=== PATIENT | male | born 1980 | race Caucasian/White ===

== ENCOUNTER 2018-01-09 19:49 | Inpatient (IN) ==
[2018-01-09 20:17] LABS: Bilirubin,Urine Moderate (Negative); Blood,Urine Negative (Negative); Clarity,Urine Cloudy (Clear); Color,Urine Dark Yellow (Yellow); Glucose,Urine (UA) Normal (Normal); Ketones,Urine 15 mg/dL (Negative); Leukocyte Esterase,Urine Negative (Negative); Nitrite,Urine Negative (Negative); Protein,Urine 30 mg/dL (Neg-Trace); Specific Gravity,Urine 1.026 (1.010-1.025); Urobilinogen,Urine Normal (Normal)
[2018-01-09 20:19] LABS: Bacteria,Urine None Seen per hpf (None-Few); Hyaline Casts,Urine Moderate per lpf (None-Few); Squamous Epithelial Cell,Urine Many per lpf (None-Few)
[2018-01-09] MEDS ORDERED: *HR* FentaNYL (PF) 100 MCG/2 ML VIAL IVP ONE ×3 (20:32→22:02)
[2018-01-09] MEDS ORDERED: Ondansetron 4 MG/2 ML VIAL IVP ONE (20:32)
[2018-01-09 20:47] LABS: Basophils # 0.1 K/mcL (0.0-0.2); Basophils % 0.3 %; Hematocrit 54.7 % (37.5-50.1); Immature Granulocytes % 0.8 % (0-4); Lymphocytes # 1.9 K/mcL (0.6-4.6); Lymphocytes % 9.5 %; Mean Corpuscular HGB Conc 32.9 g/dL (31.6-35.5); Mean Corpuscular Hemoglobin 28.5 pg (28.0-33.3); Mean Corpuscular Volume 86.7 fL (83.0-100.0); Monocytes % 9.8 %; Neutrophils # 16.1 K/mcL (1.6-8.9); Platelet Count 307 K/mcL (140-400); Red Blood Count 6.31 M/mcL (4.19-5.50); Red Cell Distribution Width 16.4 % (11.5-14.5); Segmented Neutrophils % 79.6 %
[2018-01-09] MEDS ORDERED: 0.9 % Sodium Chloride 1,000 ML IVC ONE (20:48)
[2018-01-09 21:03] LABS: Alanine Aminotransferase 23 Units/L (7-52); Albumin 4.7 g/dL (3.5-5.7); Albumin/Globulin Ratio 1.4 (1.1-2.2); Alkaline Phosphatase 97 Units/L (34-104); Amylase 24 Units/L (29-103); Aspartate Amino Transferase 16 Units/L (13-39); BUN/Creatinine Ratio 13 (6-26); Bilirubin,Direct 0.1 mg/dL (0.0-0.2); Bilirubin,Indirect 0.4 mg/dL (0.0-1.2); Bilirubin,Total 0.5 mg/dL (0.3-1.0); Blood Urea Nitrogen 13 mg/dL (6-20); Carbon Dioxide 25 mEq/L (23-29); Chloride 107 mEq/L (98-107); Globulin 3.3 g/dL (2.4-3.5); Glucose 163 mg/dL (70-105); Lipase 26 Units/L (11-82); Osmolality,Calculated 296 (280-300); Potassium 3.6 mEq/L (3.5-5.1); Sodium 141 mEq/L (136-145); eGFR For African Americans > 60 (> 60); eGFR For Non-African Americans > 60 (> 60)
--- NOTE | 2018-01-09 21:20 | Emergency Department Note ---
Disposition Clinical Impression: Crohns disease Qualifiers: Gastrointestinal tract location: unspecified location Digestive disease complication type: unspecified complication Qualified Code(s): K50.919 - Crohn' s disease, unspecified, with unspecified complications Disposition: Admitted As Inpatient Condition: Good Referrals: NONE,PCP [Primary Care Provider] - Forms: ED Satisfaction Letter, Work/School Release Time of Disposition: 22:00 Abdominal Pain HPI - General Chief Complaint: ED Abdominal Pain Stated Complaint: abd pain Time Seen by Provider: 01/09/18 20:19 Source: patient, EMS Mode of arrival: EMS Limitations: no limitations Nursing Notes Reviewed: Yes Vital Signs Reviewed: Yes - History of Present Illness HPI Narrative: 37-year-old with a history of Crohn's comes in complaining of increasing abdominal pain he says he thinks is a flare of his Crohn's disease. Pt Subjective Complaint: abdominal pain Onset (ago): hour(s) Consistency: constant Location: diffuse Pain Scale: 8 Quality: cramping, aching Radiation: none Migration to: no migration Improves with: nothing Worsens with: nothing Context: history of similar episodes, other (History of Crohn's) Associated symptoms: Reports: nausea, vomiting Treatments prior to arrival: none - Related Data Allergies Allergy/AdvReac Type Severity Reaction Status Date / Time Sulfa (Sulfonamide Allergy Rash Verified 01/09/18 19:51 Antibiotics) All systems ED: reviewed and negative except as stated. Constitutional: Denies: fever, chills, weakness, weight change Eyes: Denies: eye pain, eye discharge, vision change ENT ED: Denies: ear pain, throat pain, dental pain, hearing loss, epistaxis, congestion, dysphagia Cardiovascular: Denies: chest pain, palpitations, dyspnea on exertion, edema, syncope Respiratory: Denies: cough, dyspnea, wheezes, hemoptysis, stridor Gastrointestinal: Reports: abdominal pain, nausea, vomiting. Denies: diarrhea, constipation, hematemesis, melena, hematochezia Genitourinary: Denies: urgency, dysuria, frequency, hematuria Musculoskeletal: Denies: back pain, neck pain, arthralgia, myalgia Integumentary: Denies: rash, abrasion, lesions Neurological: Denies: headache, weakness, numbness, paresthesias, confusion, abnormal gait, vertigo Psychiatric: Denies: anxiety, depression, suicidal thoughts, homicidal thoughts , auditory hallucinations, visual hallucinations Endocrine: Denies: fatigue Hematological/Lymphatic: Denies: easy bleeding, easy bruising Allergic/Immunologic: Denies: facial swelling, urticaria Abdominal Pain PMH - Past Medical History Medical history: Reports: other Male Surgical History: Reports: Adenoidectomy, Tonsillectomy Psychiatric history: Reports: no psych history - Social History Smoking status: Current every day smoker Alcohol use: Reports: none Drug use: Reports: none Physical Exam - General Limitations: no limitations General appearance: alert - Head Head exam: atraumatic, normocephalic, normal inspection - Eye Eye exam: Present: normal appearance, PERRL, EOMI - ENT ENT exam: normal exam, normal oropharynx, mucous membranes moist - Neck Neck exam: Present: normal inspection, full ROM, trachea midline - Chest Chest inspection: Present: normal inspection, symmetric chest wall rise - Respiratory Respiratory exam: Present: normal lung sounds bilaterally - Cardiovascular Cardiovascular exam: Present: regular rate, normal rhythm, normal heart sounds - Abdominal Exam Abdominal exam: Present: tenderness. Absent: guarding, rebound Abdominal tenderness: Present: diffuse - Extremities Exam Extremities exam: Present: normal inspection, full ROM. Absent: tenderness, pedal edema - Expanded Lower Extremity Exam Neurovascular/Tendon exam: Present: normal capillary refill - Back Exam Back exam: Present: normal inspection, full ROM. Absent: tenderness - Neurological Exam Neurological exam: Present: alert, oriented X3 - Psychiatric Psychiatric exam: Present: normal affect, normal mood - Skin Skin exam: Present: warm, dry, intact, normal color Course - Reevaluation(s) Reevaluation #1: 37-year-old with a history Crohn's disease who comes in complaining of worsening abdominal pain. Workup shows a white count of 20,000, CT scan shows some narrowing at the terminal ileum may represent an early partial bowel obstruction. Time: 21:59 - Consultations Consultation #1: Discussed with , admit. Time: 21:59 Consultation #2: Discussed with Dr. Hernandez, surgery will see the patient in consult. Time: 22:06 Vital Signs Temperature 97.9 F 01/09/18 19:51 Pulse Rate 118 01/09/18 19:51 Respiratory Rate 16 01/09/18 19:51 Blood Pressure 135/96 01/09/18 19:51 O2 Sat by Pulse Oximetry 98 01/09/18 19:51 Temperature 97.9 F 01/09/18 19:51 Pulse Rate 110 01/09/18 21:52 Respiratory Rate 16 01/09/18 21:52 Blood Pressure 127/86 01/09/18 21:52 O2 Sat by Pulse Oximetry 100 01/09/18 21:52 Oxygen Delivery Oxygen Delivery Room Air Abdominal Pain - Lab Data Result diagrams: 01/09/18 20:39 01/09/18 20:39 Lab Results 01/09/18 01/09/18 01/09/18 Range/Units 20:13 20:39 20:39 WBC 20.3 H (4.3-11.1) K/mcL RBC 6.31 H (4.19-5.50) M/mcL Hgb 18.0 H (12.9-16.9) g/dL Hct 54.7 H (37.5-50.1) % MCV 86.7 (83.0-100.0) fL MCH 28.5 (28.0-33.3) pg MCHC 32.9 (31.6-35.5) g/dL RDW 16.4 H (11.5-14.5) % Plt Count 307 (140-400) K/mcL MPV 10.0 (9.4-12.4) fL Immature Gran % 0.8 (0-4) % Seg Neutrophils % 79.6 % Lymphocytes % 9.5 % Monocytes % 9.8 % Eosinophils % 0.0 % Basophils % 0.3 % Neutrophils # 16.1 H (1.6-8.9) K/mcL Lymphocytes # 1.9 (0.6-4.6) K/mcL Monocytes # 2.0 H (0.0-1.3) K/mcL Eosinophils # 0.0 (0.0-0.6) K/mcL Basophils # 0.1 (0.0-0.2) K/mcL ESR (0-10) mm/hr Sodium 141 (136-145) mEq/L Potassium 3.6 (3.5-5.1) mEq/L Chloride 107 (98-107) mEq/L Carbon Dioxide 25 (23-29) mEq/L BUN 13 (6-20) mg/dL Creatinine 1.00 (0.70-1.30) mg/dL Est GFR ( Amer) > 60 (> 60) Est GFR (Non-Af Amer) > 60 (> 60) BUN/Creatinine Ratio 13 (6-26) Glucose 163 H (70-105) mg/dL Calculated Osmolality 296 (280-300) Calcium 10.0 (8.6-10.3) mg/dL Total Bilirubin 0.5 (0.3-1.0) mg/dL Direct Bilirubin 0.1 (0.0-0.2) mg/dL Indirect Bilirubin 0.4 (0.0-1.2) mg/dL AST 16 (13-39) Units/L ALT 23 (7-52) Units/L Alkaline Phosphatase 97 (34-104) Units/L Serum Total Protein 8.0 (6.4-8.9) g/dL Albumin 4.7 (3.5-5.7) g/dL Globulin 3.3 (2.4-3.5) g/dL Albumin/Globulin Ratio 1.4 (1.1-2.2) Amylase 24 L (29-103) Units/L Lipase 26 (11-82) Units/L Urine Color Dark Yellow (Yellow) Urine Clarity Cloudy A (Clear) Urine pH 6.0 (5.0-8.0) pH Units Ur Specific [place] 1.026 H (1.010-1.025) Urine Protein 30 H (Neg-Trace) mg/dL Urine Glucose (UA) Normal (Normal) mg/dL Urine Ketones 15 H (Negative) mg/dL Urine Blood Negative (Negative) Urine Nitrite Negative (Negative) Urine Bilirubin Moderate H (Negative) Urine Urobilinogen Normal (Normal) mg/dL Ur Leukocyte Esterase Negative (Negative) Urine Microscopic RBC 3-5 H (0-3) per hpf Urine Microscopic WBC 5-15 H (0-3) per hpf Ur Squamous Epith Cells Many H (None-Few) per lpf Urine Bacteria None Seen (None-Few) per hpf Hyaline Casts Moderate H (None-Few) per lpf Ur Culture Indicated? NO (NO) 01/09/18 Range/Units 20:39 WBC (4.3-11.1) K/mcL RBC (4.19-5.50) M/mcL Hgb (12.9-16.9) g/dL Hct (37.5-50.1) % MCV (83.0-100.0) fL MCH (28.0-33.3) pg MCHC (31.6-35.5) g/dL RDW (11.5-14.5) % Plt Count (140-400) K/mcL MPV (9.4-12.4) fL Immature Gran % (0-4) % Seg Neutrophils % % Lymphocytes % % Monocytes % % Eosinophils % % Basophils % % Neutrophils # (1.6-8.9) K/mcL Lymphocytes # (0.6-4.6) K/mcL Monocytes # (0.0-1.3) K/mcL Eosinophils # (0.0-0.6) K/mcL Basophils # (0.0-0.2) K/mcL ESR 26 H (0-10) mm/hr Sodium (136-145) mEq/L Potassium (3.5-5.1) mEq/L Chloride (98-107) mEq/L Carbon Dioxide (23-29) mEq/L BUN (6-20) mg/dL Creatinine (0.70-1.30) mg/dL Est GFR ( Amer) (> 60) Est GFR (Non-Af Amer) (> 60) BUN/Creatinine Ratio (6-26) Glucose (70-105) mg/dL Calculated Osmolality (280-300) Calcium (8.6-10.3) mg/dL Total Bilirubin (0.3-1.0) mg/dL Direct Bilirubin (0.0-0.2) mg/dL Indirect Bilirubin (0.0-1.2) mg/dL AST (13-39) Units/L ALT (7-52) Units/L Alkaline Phosphatase (34-104) Units/L Serum Total Protein (6.4-8.9) g/dL Albumin (3.5-5.7) g/dL Globulin (2.4-3.5) g/dL Albumin/Globulin Ratio (1.1-2.2) Amylase (29-103) Units/L Lipase (11-82) Units/L Urine Color (Yellow) Urine Clarity (Clear) Urine pH (5.0-8.0) pH Units Ur Specific [place] (1.010-1.025) Urine Protein (Neg-Trace) mg/dL Urine Glucose (UA) (Normal) mg/dL Urine Ketones (Negative) mg/dL Urine Blood (Negative) Urine Nitrite (Negative) Urine Bilirubin (Negative) Urine Urobilinogen (Normal) mg/dL Ur Leukocyte Esterase (Negative) Urine Microscopic RBC (0-3) per hpf Urine Microscopic WBC (0-3) per hpf Ur Squamous Epith Cells (None-Few) per lpf Urine Bacteria (None-Few) per hpf Hyaline Casts (None-Few) per lpf Ur Culture Indicated? (NO)
[2018-01-09] MEDS ORDERED: Piperacillin/Tazobactam 3.375 GM in 0.9 % Sodium Chloride Mini Bag 100 ML IVPB ONE (22:00)
[2018-01-09] MEDS ORDERED: GI Cocktail 40 ML EACH PO ONE (22:20)
[2018-01-09] MEDS ORDERED: Naloxone 0.4 MG/ML INJ IVP PRN (23:22)
--- NOTE | 2018-01-09 23:34 | Internal Med History&Physical ---
Date of Encounter: 01/10/18 Time of Encounter: 23:34 Assessment and Plan (1) Crohns disease Current visit: Yes Status: Acute 37/male Patient is known to have a Crohn's disease. Patient used to be in [place]. Move to [place]. Ongoing abdominal pain for past 48 hours. On examination: Patient has a intra-abdominal/periumbilical tenderness. Bowel sounds are present Assessment: Patient has a possible small bowel obstruction (CT finding) Advance Crohn's disease. Noncompliance. Plan: Admit as inpatient. We will give Zosyn. Antiembolic stockings. Intravenous antibiotics: Zosyn 3.375 g every 8 hours. Nothing by mouth. Bowel rest. Surgical consult. Qualifiers: Gastrointestinal tract location: unspecified location Digestive disease complication type: unspecified complication Qualified Code(s): K50.919 - Crohn 's disease, unspecified, with unspecified complications (2) Partial small bowel obstruction Current visit: Yes Status: Acute Patient is a possibility of a partial small bowel obstruction. Surgery on the board. We will follow the recommendations from surgery. (3) DVT prophylaxis Current visit: Yes Status: Acute SCD Medical decision making: This patient has a moderate to severe risk of worsening in spite of being on appropriate medication due to the underlying complex medical condition. Internal Medicine - H&P: HPI Chief complaint: abdominal pain. Admitted From: Emergency Dept Plans for Post Hospital Care: Home History of present illness: Mr. Castro is a 37 year old male who has recently moved to [facility] from [place]. Patient is known to have a Crohn's disease seems the ER 1999. Patient was followed by Dr. Mooney who is a experimental mechanic spacecraft in [place]. Patient was on mesalamine. Patient was keen to switch to Biologics. Patient is very noncompliant with the treatment. Patient has multiple admissions in the last 18 years and he has defaulted on many of his workup and procedures. Patient arrived in [place] less than 2 weeks back. Patient is complaining of abdominal pain which is surrounding the umbilicus, nonradiating, localized, associated with nausea and vomiting and relieved with pain medication. Patient denies chest pain, diarrhea, dizziness or shortness of breath. In view of this ongoing persistent pain patient decided to come to the emergency room for further evaluation. Patient was evaluated in the emergency room. He underwent CT scan of the abdomen. CT scan of the abdomen shows possibility of a small bowel obstruction. Small bowel obstruction is partial in nature. Noted that patient has a elevated white blood cell count at patient' s hemoglobin on arrival was 18. It seems that patient is hemoconcentrated. Reason for admission: Severe gastroenteritis/dehydration. Patient was a background history of for Crohn's disease. Patient has a colitis and needs intravenous antibiotics along with the bowel rest. Past Med Surg Social Fam HX - Past Medical History Medical history: other Psychiatric history: no psych history - Social History Smoking Status: Current every day smoker Smokeless Tobacco Status: No Alcohol use: none Drug use: none Internal Medicine - H&P: Meds 3 Allergy/AdvReac Type Severity Reaction Status Date / Time Sulfa (Sulfonamide Allergy Rash Verified 01/09/18 19:51 Antibiotics) All Systems PM: A 10-system review of systems was performed and is negative for pertinent findings except as documented above in the HPI. - Constitutional Constitutional: no chills, no fever(s), no night sweats - EENT Eyes: no change in vision, no discharge, no pain, no photophobia Ears: no ear discharge, no ear pain, no tinnitus Nose, mouth and throat: no dysphagia, no nasal discharge, no neck pain, no sore throat - Cardiovascular Cardiovascular ROS IM: no chest pain, no diaphoresis, no dyspnea, no lightheadedness, no palpitations, no syncope - Respiratory Respiratory: no cough, no dyspnea, no wheezing, no excessive phlegm production - Gastrointestinal Gastrointestinal: abdominal pain, bloating, change in stool character, heartburn , no diarrhea, no hematemesis, no hematochezia, no melena, no nausea, no vomiting - Musculoskeletal Musculoskeletal ROS IM: no numbness, no tingling - Integumentary Integumentary IM: no rash, no unusual bruising - Neurological Neurological ROS: no confusion, no convulsions, no focal weakness, no numbness, no tingling, no tremor(s) - Hematologic/Lymphatic Hematologic/Lymphatic: no easy bruising - Constitutional Vitals: Temp Pulse Resp BP Pulse Ox 97.9 F 110 16 127/86 100 01/09/18 19:51 01/09/18 21:52 01/09/18 21:52 01/09/18 21:52 01/09/18 21:52 General appearance: Present: A&O X 3, pleasant, no acute distress, answers questions appropriately - Head Head exam: Present: atraumatic, normocephalic - Eye Eye exam: Present: PERRL, conjuntiva pink, sclera anicteric Pupils: Present: PERRL - Neck Neck exam general surgery: Present: supple, trachea midline. Absent: lymphadenopathy - Respiratory Respiratory exam: Present: CTAB. Absent: accessory muscle use, rales, rhonchi, wheezes - Cardiovascular Cardiovascular exam: Present: RRR, +S1, +S2. Absent: diastolic murmur, gallop, rubs, systolic murmur - GI/Abdominal GI/Abdominal exam: Present: normal bowel sounds, soft, no peritoneal signs. Absent: distended, tenderness Additional comments: Patient has a abdominal tenderness around the umbilicus. - Extremities Exam Extremities exam: Present: warm, radial pulses palpable and symmetrical. Absent : calf tenderness, cyanotic, pedal edema - Neurological Exam Neurological exam: Present: CN II-XII intact, oriented X3, no focal deficits. Absent: pronater drift, facial droop, speech deficit - Skin Skin exam: Present: dry, intact Internal Med - H&P Results - Labs CBC & Chem 7: 01/10/18 01:17 01/10/18 01:17
[2018-01-10] MEDS: OXYCODONE Oral CONC 10 MG/0.5 ML ORAL.SYG SL PRN ×6 (00:07→22:20)
[2018-01-10] MEDS: 0.9 % Sodium Chloride 1,000 ML IVC SCH ×2 (00:09→10:23)
[2018-01-10 02:02] LABS: Basophils # 0.1 K/mcL (0.0-0.2); Basophils % 0.3 %; Hematocrit 51.1 % (37.5-50.1); Immature Granulocytes % 0.9 % (0-4); Lymphocytes # 1.8 K/mcL (0.6-4.6); Lymphocytes % 11.3 %; Mean Corpuscular HGB Conc 33.3 g/dL (31.6-35.5); Mean Corpuscular Volume 87.1 fL (83.0-100.0); Mean Platelet Volume 10.3 fL (9.4-12.4); Monocytes # 1.7 K/mcL (0.0-1.3); Monocytes % 10.6 %; Neutrophils # 12.2 K/mcL (1.6-8.9); Platelet Count 304 K/mcL (140-400); Red Blood Count 5.87 M/mcL (4.19-5.50); Red Cell Distribution Width 15.3 % (11.5-14.5); Segmented Neutrophils % 76.9 %
[2018-01-10 02:07] LABS: INR 1.1
[2018-01-10 02:10] LABS: Activated Partial Thrombo Time 31.9 Seconds (26.0-36.0)
[2018-01-10 02:39] LABS: Alanine Aminotransferase 20 Units/L (7-52); Albumin 4.3 g/dL (3.5-5.7); Albumin/Globulin Ratio 1.5 (1.1-2.2); Alkaline Phosphatase 89 Units/L (34-104); Aspartate Amino Transferase 15 Units/L (13-39); BUN/Creatinine Ratio 14 (6-26); Bilirubin,Total 0.5 mg/dL (0.3-1.0); Blood Urea Nitrogen 12 mg/dL (6-20); Calcium 9.1 mg/dL (8.6-10.3); Carbon Dioxide 23 mEq/L (23-29); Chloride 109 mEq/L (98-107); Chol/HDL Ratio 7.3 (0-4.9); Cholesterol 196 mg/dL (< 200); Globulin 2.9 g/dL (2.4-3.5); Glucose 154 mg/dL (70-105); HDL Cholesterol 27 mg/dL (40-59); LDL Cholesterol,Calculated 140 mg/dL (0-99); Magnesium 1.7 mg/dL (1.6-2.6); Osmolality,Calculated 295 (280-300); Phosphorous 2.7 mg/dL (2.7-4.5); Potassium 3.3 mEq/L (3.5-5.1); Sodium 141 mEq/L (136-145); Total Protein 7.2 g/dL (6.4-8.9); Triglycerides 147 mg/dL (< 150); eGFR For African Americans > 60 (> 60); eGFR For Non-African Americans > 60 (> 60)
[2018-01-10] MEDS: Ondansetron 4 MG/2 ML VIAL IVP PRN ×2 (05:07→20:47)
--- NOTE | 2018-01-10 07:50 | General Surgery Consult Note ---
Date of Encounter: 01/10/18 Time of Encounter: 07:50 Assessment and Plan (1) Crohns disease Current Visit: Yes Status: Acute 37M with crohn's flare with concern for developing obstruction at TI; patient is currently not obstructed and non septic GI consult: patient will need pharmacological control of crohn's; if patient does begin to appear obstructed, plan for a SBFT to verify; no surgery at present patient will need colonoscopy in light of his duration with crohn's disease as he has a high risk of cancer will continue to follow Qualifiers: Gastrointestinal tract location: small intestine Digestive disease complication type: unspecified complication Qualified Code(s): K50.019 - Crohn 's disease of small intestine with unspecified complications History of Present Illness Consult date: 01/10/18 Reason for consult: abdominal pain Requesting physician: Alex Erwin History of present illness: 37M with a 9 year history of Crohn's disease, originally controlled with medication, who has recently moved from [facility] and has been off medication for about 1 year presents with a recurrence of Crohn's flare. He states that he has been unable to eat for the past 2-3 days due to pain, distension, bloating, and feeling of heartburn. In addition he also has diarrhea, but he states he is passing gas with these episodes. No reports of fevers, chills, chest pain, nor shortness of breath. A CT scan was obtained, which was personally reviewed and interpreted by me in combination with radiology reads, which was concerning for potential stricture at his terminal ileum, but described as a 'partial obstruction.' General surgery was consulted for management recommendations. Past Med Surg Social Fam HX - Past Medical History Medical history: other Psychiatric history: no psych history - Past Surgical History Surgical History: no surgical history - Social History Smoking Status: Current every day smoker Smokeless Tobacco Status: No Alcohol use: none Drug use: none Medications and Allergies 3 Allergy/AdvReac Type Severity Reaction Status Date / Time Sulfa (Sulfonamide Allergy Rash Verified 01/09/18 19:51 Antibiotics) Review of Systems All systems PM: A 10-system review of systems was performed and is negative for pertinent findings except as documented above in the HPI. General Surgery Exam Initial Vital Signs Temp Pulse Resp BP Pulse Ox 97.9 F 118 16 135/96 98 01/09/18 19:51 01/09/18 19:51 01/09/18 19:51 01/09/18 19:51 01/09/18 19:51 - General physical appearance well developed, well nourished, no distress - Eyes normal ocular movement - ENT normocephalic - Neck trachea midline, no lymphadectomy - Respiratory normal expansion, normal respiratory effort - Cardiovascular Cardiovascular exam: Present: RRR - Abdomen Abdomen general surgery: Present: soft, non tender - Integumentary Integumentary general surgery: Present: warm and dry - Neurologic Present: CN 2-12 grossly intact - Psychiatric Psychiatric general surgery: Present: A&Ox3 Exam Initial Vital Signs Temp Pulse Resp BP Pulse Ox 97.9 F 118 16 135/96 98 01/09/18 19:51 01/09/18 19:51 01/09/18 19:51 01/09/18 19:51 01/09/18 19:51 Results - Labs 01/10/18 01:17 01/10/18 01:17 Abnormal lab results WBC 15.8 K/mcL (4.3-11.1) H 01/10/18 01:17 RBC 5.87 M/mcL (4.19-5.50) H 01/10/18 01:17 Hgb 17.0 g/dL (12.9-16.9) H 01/10/18 01:17 Hct 51.1 % (37.5-50.1) H 01/10/18 01:17 RDW 15.3 % (11.5-14.5) H 01/10/18 01:17 Neutrophils # 12.2 K/mcL (1.6-8.9) H 01/10/18 01:17 Monocytes # 1.7 K/mcL (0.0-1.3) H 01/10/18 01:17 ESR 26 mm/hr (0-10) H 01/09/18 20:39 Potassium 3.3 mEq/L (3.5-5.1) L 01/10/18 01:17 Chloride 109 mEq/L (98-107) H 01/10/18 01:17 Glucose 154 mg/dL (70-105) H 01/10/18 01:17 POC Glucose 156 (58-89) H 01/10/18 05:22 LDL Cholesterol, Calc 140 mg/dL (0-99) H 01/10/18 01:17 HDL Cholesterol 27 mg/dL (40-59) L 01/10/18 01:17 Cholesterol/HDL Ratio 7.3 (0-4.9) H 01/10/18 01:17 Amylase 24 Units/L (29-103) L 01/09/18 20:39 Urine Clarity Cloudy (Clear) A 01/09/18 20:13 Ur Specific [place] 1.026 (1.010-1.025) H 01/09/18 20:13 Urine Protein 30 mg/dL (Neg-Trace) H 01/09/18 20:13 Urine Ketones 15 mg/dL (Negative) H 01/09/18 20:13 Urine Bilirubin Moderate (Negative) H 01/09/18 20:13 Urine Microscopic RBC 3-5 per hpf (0-3) H 01/09/18 20:13 Urine Microscopic WBC 5-15 per hpf (0-3) H 01/09/18 20:13 Ur Squamous Epith Cells Many per lpf (None-Few) H 01/09/18 20:13 Hyaline Casts Moderate per lpf (None-Few) H 01/09/18 20:13 Diabetes panel 01/10/18 Range/Units 01:17 Sodium 141 (136-145) mEq/L Potassium 3.3 L (3.5-5.1) mEq/L Chloride 109 H (98-107) mEq/L Carbon Dioxide 23 (23-29) mEq/L BUN 12 (6-20) mg/dL Creatinine 0.83 (0.70-1.30) mg/dL Glucose 154 H (70-105) mg/dL Calcium 9.1 (8.6-10.3) mg/dL AST 15 (13-39) Units/L ALT 20 (7-52) Units/L Alkaline Phosphatase 89 (34-104) Units/L Albumin 4.3 (3.5-5.7) g/dL Triglycerides 147 (< 150) mg/dL HDL Cholesterol 27 L (40-59) mg/dL Calcium panel 01/10/18 Range/Units 01:17 Calcium 9.1 (8.6-10.3) mg/dL Phosphorus 2.7 (2.7-4.5) mg/dL Albumin 4.3 (3.5-5.7) g/dL Pituitary panel 01/10/18 Range/Units 01:17 Sodium 141 (136-145) mEq/L Potassium 3.3 L (3.5-5.1) mEq/L Chloride 109 H (98-107) mEq/L Carbon Dioxide 23 (23-29) mEq/L BUN 12 (6-20) mg/dL Creatinine 0.83 (0.70-1.30) mg/dL Glucose 154 H (70-105) mg/dL Calcium 9.1 (8.6-10.3) mg/dL Adrenal panel 01/10/18 Range/Units 01:17 Sodium 141 (136-145) mEq/L Potassium 3.3 L (3.5-5.1) mEq/L Chloride 109 H (98-107) mEq/L Carbon Dioxide 23 (23-29) mEq/L BUN 12 (6-20) mg/dL Creatinine 0.83 (0.70-1.30) mg/dL Glucose 154 H (70-105) mg/dL Calcium 9.1 (8.6-10.3) mg/dL Total Bilirubin 0.5 (0.3-1.0) mg/dL AST 15 (13-39) Units/L ALT 20 (7-52) Units/L Alkaline Phosphatase 89 (34-104) Units/L Albumin 4.3 (3.5-5.7) g/dL All other labs normal. - Imaging CT scan - abdomen: report reviewed, image reviewed CT scan - pelvis: report reviewed, image reviewed Consult Discharge Plan - Plan Referrals: NONE,PCP [Primary Care Provider] -
--- NOTE | 2018-01-10 11:50 | Event Note ---
Date of Encounter: 01/10/18 Time of Encounter: 11:48 Mr. Castro is a 37 year old male who has recently moved to [facility] from [place]. Patient is known to have a Crohn's disease seems the ER 1999. Patient was followed by Dr. Mooney who is a institutional aide in [place]. Patient was on mesalamine. Patient was keen to switch to Biologics. Patient is very noncompliant with the treatment. Patient has multiple admissions in the last 18 years and he has defaulted on many of his workup and procedures. Patient currently is not on any medications for Crohn's disease. He presented to emergency room for abdominal pain nausea vomiting. CT scan shows possible small bowel obstruction. Surgery was consulted, no surgical intervention was recommended . I will consult the GI for further treatment. We will add a Flagyl IV to zosyn.
[2018-01-10] MEDS ORDERED: MetroNIDAZOLE 500 MG/100 ML 500 MG/100 ML BAG IVPB SCH ×2 (12:00→16:00)
[2018-01-10] MEDS: methylPREDNISolone 125 MG/2 ML VIAL IVP SCH (13:57)
[2018-01-10] MEDS ORDERED: *HR* HYDROmorphone (PF) 1 MG/ML SYRINGE IVP ONE (17:23)
[2018-01-10] MEDS: MetroNIDAZOLE 500 MG/100 ML 500 MG/100 ML BAG IVPB SCH (20:48)
[2018-01-10] MEDS: *HR* Promethazine 25 MG/ML VIAL IVP PRN (22:14)
[2018-01-11] MEDS: OXYCODONE Oral CONC 10 MG/0.5 ML ORAL.SYG SL PRN ×5 (03:24→23:37)
[2018-01-11] MEDS: *HR* Promethazine 25 MG/ML VIAL IVP PRN ×5 (03:24→23:37)
[2018-01-11] MEDS: MetroNIDAZOLE 500 MG/100 ML 500 MG/100 ML BAG IVPB SCH ×3 (04:18→20:34)
[2018-01-11] MEDS: methylPREDNISolone 125 MG/2 ML VIAL IVP SCH (09:37)
--- NOTE | 2018-01-11 11:11 | Gastroenterology Consult Note ---
<Bruce Reyna - Last Filed: 01/11/18 11:09> Date of Encounter: 01/11/18 Time of Encounter: 10:00 - Assessment and plan (1) Crohns disease Status: Acute Assessment and plan: Diagnosed in 2004. Has tried Mesalimine. Last colonoscopy several years ago in [place]. Will attempt obtain colonoscopy report and pathology from [facility] in [place]. Will need colonoscopy. Continue Solu-Medrol 60 mg IV and pain control. Qualifiers: Gastrointestinal tract location: small intestine Digestive disease complication type: unspecified complication Qualified Code(s): K50.019 - Crohn 's disease of small intestine with unspecified complications (2) Partial small bowel obstruction Status: Acute Assessment and plan: Surgery consulted - Time Spent With Patient Total time spent is greater than 50% in coordination of care (as documented) at patient's floor/unit and/or counseling patient: GI History of Present Illness - Data of Consult Patient: new to practice Consult date: 01/11/18 Requesting Physician: Chloé Del Rio MD - Consult Narrative Reason for consult: Crohn's disease History of present illness: Mr. Castro is a 37 year old male with PMH of Crohn's disease who presented to the ED with abdominal pain with associated nausea and vomiting. He was diagnosed with Crohn's disease in 2004. He recently moved to [place] from [place]. Patient was followed by Dr. Mooney who is a retail marketing specialist in [place]. Patient was on mesalamine. Patient has been noncompliant with the treatment. Patient has multiple admissions in the last 18 years and he has defaulted on many of his workup and procedures. He states that he has been unable to eat for the past 2-3 days due to pain, distension, bloating, and feeling of heartburn. In addition he also has diarrhea with BRBPR. CT A/P with fluid throughout the small and large bowel, borderline prominent loops of proximal small bowel with gradual tapering towards the TI with possible low- grade partial obstruction. Procedures: Colonoscopy "years ago" at [facility] in [place] NSAIDs: None Anticoagulation: None Past Med Surg Social Fam HX - Past Medical History Medical history: other Psychiatric history: no psych history - Past Surgical History Surgical History: no surgical history - Social History Smoking Status: Current every day smoker Smokeless Tobacco Status: No Alcohol use: none Drug use: none - Gastrointestinal Gastrointestinal: Present: as per HPI - Constitutional Constitutional: as per HPI - EENT Eyes: as per HPI Ears: Present: as per HPI Nose, mouth and throat: Present: as per HPI - Cardiovascular Cardiovascular ROS: Present: as per HPI - Respiratory Respiratory IM: Present: as per HPI - Genitourinary Genitourinary: Absent: change in color, Urinary frequency - Neurological ROS Neurological GI: Present: as per HPI - Hematologic/Lymphatic Hematologic/Lymphatic pediatric: Present: as per HPI - Musculoskeletal Musculoskeletal ROS GI: Present: as per HPI - Integumentary Integumentary GI: Present: as per HPI - Psychiatric ROS Psychiatric GI: Present: as per HPI - Endocrine Endocrine IM: Present: as per HPI - Constitutional Vitals: Temp Pulse Resp BP Pulse Ox 98.9 F 70 15 108/64 97 01/11/18 03:24 01/11/18 03:24 01/11/18 03:24 01/11/18 03:24 01/11/18 03:24 General appearance: Present: cooperative, A&O X 3, no acute distress, answers questions appropriately - Head Head exam: Present: atraumatic, normocephalic - Eye Eye exam: Present: normal appearance, sclera anicteric - ENT ENT exam: Present: mucous membranes dry - Neck Neck exam general surgery: Present: normal inspection, trachea midline - Respiratory Respiratory exam: Present: CTAB. Absent: rales, rhonchi - Cardiovascular Cardiovascular exam: Present: RRR, +S1, +S2 - GI/Abdominal GI/Abdominal exam: Present: guarding, soft, tenderness (generalized, mostly LLQ) , no peritoneal signs. Absent: distended, firm - Rectal Rectal exam: Present: deferred - Extremities Exam Extremities exam: Present: warm - Neurological Exam Neurological exam: Present: no focal deficits - Psychiatric Psychiatric exam: Present: normal affect, normal mood - Skin Skin exam: Present: dry, intact, normal color, warm Results - Labs CBC & Chem 7: 01/10/18 01:17 01/10/18 01:17 Labs: Last Result ESR 26 mm/hr (0-10) H 01/09/18 20:39 Calcium 9.1 mg/dL (8.6-10.3) 01/10/18 01:17 Triglycerides 147 mg/dL (< 150) 01/10/18 01:17 Entire Visit Hgb 17.0 g/dL (12.9-16.9) H 01/10/18 01:17 Hct 51.1 % (37.5-50.1) H 01/10/18 01:17 PT 12.0 Seconds (9.4-12.1) 01/10/18 01:17 Total Bilirubin 0.5 mg/dL (0.3-1.0) 01/10/18 01:17 AST 15 Units/L (13-39) 01/10/18 01:17 ALT 20 Units/L (7-52) 01/10/18 01:17 Amylase 24 Units/L (29-103) L 01/09/18 20:39 Lipase 26 Units/L (11-82) 01/09/18 20:39 - ABG ABG results: PT/INR, D-dimer PT 12.0 Seconds (9.4-12.1) 01/10/18 01:17 Consult Discharge Plan - Plan Instructions: Crohn Disease (GEN) Additional Instructions: F/up with PCP in 1-2 weeks F/u with GI in 2 weeks Referrals: NONE,PCP [Primary Care Provider] - (Patient in the process of moving and will find his own physician at this time. Thank you) Jonathan Lebron MD [Partnered Physician] - (Office will call with date and time of appt. Thank you) Prescriptions: OxyCODONE/APAP 5/325 [Percocet 5/325 MG] 1 each PO Q6HR PRN 5 Days #10 tablet PRN Reason: Pain predniSONE [PredniSONE] 40 mg PO DAILY 21 Days tablet <Rigo Joyner - Last Filed: 01/30/18 13:55> Date of Encounter: 01/11/18 - Time Spent With Patient Total time spent is greater than 50% in coordination of care (as documented) at patient's floor/unit and/or counseling patient: GI History of Present Illness - Data of Consult Requesting Physician: Chloé Del Rio MD - Consult Narrative History of present illness: Mr. Castro is a 37 year old male - Constitutional Vitals: Temp Pulse Resp BP Pulse Ox 99.6 F 86 16 124/81 96 01/13/18 10:48 01/13/18 10:48 01/13/18 10:48 01/13/18 10:48 01/13/18 10:48 Results - Labs CBC & Chem 7: 01/13/18 09:02 01/13/18 09:02 Labs: Last Result ESR 26 mm/hr (0-10) H 01/09/18 20:39 Calcium 8.9 mg/dL (8.6-10.3) 01/13/18 09:02 Triglycerides 147 mg/dL (< 150) 01/10/18 01:17 Entire Visit Hgb 17.2 g/dL (12.9-16.9) H 01/13/18 09:02 Hct 52.1 % (37.5-50.1) H 01/13/18 09:02 PT 12.0 Seconds (9.4-12.1) 01/10/18 01:17 Total Bilirubin 0.5 mg/dL (0.3-1.0) 01/10/18 01:17 AST 15 Units/L (13-39) 01/10/18 01:17 ALT 20 Units/L (7-52) 01/10/18 01:17 Amylase 24 Units/L (29-103) L 01/09/18 20:39 Lipase 26 Units/L (11-82) 01/09/18 20:39 S.cerevisiae IgG Ab 25.7 Units (0.0-24.9) H 01/13/18 09:02 S.cerevisiae IgA Ab 33.0 Units (0.0-24.9) H 01/13/18 09:02 - ABG ABG results: PT/INR, D-dimer PT 12.0 Seconds (9.4-12.1) 01/10/18 01:17 - Attending Attestation Mrs. Duggan is a pleasant 37-year-old white male who was at a retail marketing specialist office in [place] where he was diagnosed with Crohn's disease. He now comes in with an exacerbation of the same. Unfortunately we have no records of that and have requested records from [place] Patient will need a colonoscopy and will make further recommendations after the procedure by which time hopefully the records from [place] will arrive and help I have personally performed a face to face evaluation on this patient. I have reviewed and agree with the care plan. History and Exam by me shows: in this patient's management
--- NOTE | 2018-01-11 12:34 | General Surgery Progress Note ---
Date of Encounter: 01/11/18 Time of Encounter: 12:32 - Assessment and Plan (1) Crohns disease Current Visit: Yes Status: Acute 37M with crohn's flare with concern for developing obstruction at TI; patient is currently not obstructed and non septic cont with IV pain meds; appreciate GI recs consider sips of liquids (250cc qshift, non carbonate, non sweetened) once pain is controlled no acute surgery at present, patient needs control of crohn's flare will cont to follow Qualifiers: Gastrointestinal tract location: small intestine Digestive disease complication type: unspecified complication Qualified Code(s): K50.019 - Crohn 's disease of small intestine with unspecified complications Subjective Patient reports: no new complaints, still having pain, flatus, bowel movement, diarrhea, afebrile Objective Intake and Output 01/10/18 01/11/18 01/11/18 23:59 07:59 15:59 Intake Total 400 / 400 0 / 0 300 / 300 Output Total 600 / 600 0 / 0 Balance -200 / -200 0 / 0 300 / 300 Intake: IV Fluids 400 / 400 300 / 300 Cipro Premix 400 MG/200 ML 400 200 / 200 200 / 200 mg In 200 ml @ 200 mls/hr IVPB Q12HR [facility] Rx#:[id number] Flagyl Premix 500 MG/100 ML 500 100 / 100 100 / 100 mg In 100 ml @ 100 mls/hr IVPB Q8H [facility] Rx#:[id number] Zosyn 3.375 GM In 0.9 % Sodium 100 / 100 Chloride 100 ML @ 25 mls/hr IVPB Q8H [facility] Rx#:[id number] Oral 0 / 0 0 / 0 Output: Urine 600 / 600 0 / 0 Other: Meal NPO Weight 108.5 kg Blood Glucose* 123 111 Patient Weight 01/11/18 23:59 Weight 108.5 kg - General physical appearance no distress - Respiratory normal expansion, normal respiratory effort - Cardiovascular Cardiovascular exam: Present: RRR - Abdomen Abdomen: Present: soft, tender (non peritoneal) Abdominal Tenderness: LLQ - Integumentary no rash - Neurologic CN 2-12 grossly intact - Psychiatric oriented to time, oriented to person, oriented to place - Labs 01/10/18 01:17 01/10/18 01:17 Consult Discharge Plan - Plan Referrals: NONE,PCP [Primary Care Provider] -
[2018-01-11] MEDS: *HR* FentaNYL (PF) 100 MCG/2 ML VIAL IVP PRN ×2 (12:41→20:33)
[2018-01-11] MEDS ORDERED: Ketorolac 30 MG/ML VIAL IVP PRN (14:08)
[2018-01-11] MEDS: D5% in 0.45% NACL 1,000 ML IVC SCH (16:18)
[2018-01-11] MEDS ORDERED: SODIUM CHLORIDE/NAHCO3/KCL/PEG 4,000 ML SOLN.RECON PO ONE (17:00)
--- NOTE | 2018-01-11 17:44 | Internal Med Progress Note ---
Date of Encounter: 01/11/18 Time of Encounter: 12:30 - Assessment and plan (1) Crohns disease Current Visit: Yes Status: Acute Assessment and plan: Patient has history of Crohn's disease with noncompliance to medications and outpatient follow-up. Last colonoscopy was 5 years ago. GI consult appreciated , follow up outpatient biopsy reports. Continue IV steroids, supportive care with when necessary antiemetics. Pain control with when necessary IV fentanyl and oral Percocet. Ice chips and clear water as tolerated. Qualifiers: Gastrointestinal tract location: small intestine Digestive disease complication type: unspecified complication Qualified Code(s): K50.019 - Crohn 's disease of small intestine with unspecified complications (2) Partial small bowel obstruction Current Visit: Yes Status: Ruled-out Assessment and plan: CT abdomen/pelvis with borderline prominent loops of proximal small bowel, very low grade partial obstruction not excluded. Surgery consult appreciated, recommend GI evaluation and treatment for acute flareup of Crohn's disease. (3) Tobacco abuse Current Visit: Yes Status: Chronic Assessment and plan: Declines nicotine transdermal patch at this time. - Subjective Interval history: Reports severe abdominal pain, diarrhea. No fever, chills, but does report nausea; request for IV pain medications and diet. - Constitutional Vitals: Temp Pulse Resp BP Pulse Ox 99.1 F 62 16 143/90 99 01/11/18 15:28 01/11/18 15:28 01/11/18 15:28 01/11/18 15:28 01/11/18 15:28 General appearance: Present: mild distress, A&O X 3, answers questions appropriately - Respiratory Respiratory exam: Present: CTAB. Absent: accessory muscle use, rales, rhonchi, wheezes - Cardiovascular Cardiovascular exam: Present: RRR, +S1, +S2. Absent: diastolic murmur, gallop, rubs, systolic murmur - GI/Abdominal GI/Abdominal exam: Present: normal bowel sounds, soft (Tenderness in left lower and suprapubic areas. No guarding or rigidity.), no peritoneal signs. Absent: distended, tenderness - Extremities Exam Extremities exam: Present: full ROM, warm, radial pulses palpable and symmetrical. Absent: calf tenderness, cyanotic, pedal edema - Neurological Exam Neurological exam: Present: CN II-XII intact, oriented X3, no focal deficits. Absent: pronater drift, facial droop, speech deficit Internal Medicine: Result - Labs CBC & Chem 7: 01/10/18 01:17 01/10/18 01:17 - ABG Interpretation ABG results: PT/INR, D-dimer PT 12.0 Seconds (9.4-12.1) 01/10/18 01:17 Consult Discharge Plan - Plan Referrals: NONE,PCP [Primary Care Provider] -
[2018-01-12] MEDS: D5% in 0.45% NACL 1,000 ML IVC SCH (03:59)
[2018-01-12] MEDS: MetroNIDAZOLE 500 MG/100 ML 500 MG/100 ML BAG IVPB SCH ×2 (04:00→13:24)
[2018-01-12] MEDS: *HR* FentaNYL (PF) 100 MCG/2 ML VIAL IVP PRN ×3 (05:16→22:34)
[2018-01-12] MEDS: *HR* Promethazine 25 MG/ML VIAL IVP PRN ×4 (05:19→19:37)
[2018-01-12 06:21] LABS: Basophils # 0.1 K/mcL (0.0-0.2); Basophils % 0.4 %; Eosinophils # 0.1 K/mcL (0.0-0.6); Eosinophils % 0.4 %; Hematocrit 51.1 % (37.5-50.1); Hemoglobin 17.1 g/dL (12.9-16.9); Immature Granulocytes % 1.4 % (0-4); Lymphocytes # 2.9 K/mcL (0.6-4.6); Lymphocytes % 18.5 %; Mean Corpuscular HGB Conc 33.5 g/dL (31.6-35.5); Mean Corpuscular Hemoglobin 28.7 pg (28.0-33.3); Mean Corpuscular Volume 85.9 fL (83.0-100.0); Mean Platelet Volume 10.2 fL (9.4-12.4); Monocytes # 1.6 K/mcL (0.0-1.3); Neutrophils # 10.8 K/mcL (1.6-8.9); Platelet Count 245 K/mcL (140-400); Red Blood Count 5.95 M/mcL (4.19-5.50); Red Cell Distribution Width 14.3 % (11.5-14.5); Segmented Neutrophils % 69.3 %
[2018-01-12 07:01] LABS: BUN/Creatinine Ratio 14 (6-26); Blood Urea Nitrogen 10 mg/dL (6-20); Calcium 8.7 mg/dL (8.6-10.3); Carbon Dioxide 24 mEq/L (23-29); Chloride 107 mEq/L (98-107); Glucose 144 mg/dL (70-105); Magnesium 2.2 mg/dL (1.6-2.6); Osmolality,Calculated 290 (280-300); Potassium 3.2 mEq/L (3.5-5.1); Sodium 139 mEq/L (136-145); eGFR For African Americans > 60 (> 60); eGFR For Non-African Americans > 60 (> 60)
[2018-01-12] MEDS: methylPREDNISolone 125 MG/2 ML VIAL IVP SCH (08:47)
[2018-01-12] MEDS: OXYCODONE Oral CONC 10 MG/0.5 ML ORAL.SYG SL PRN ×4 (08:48→23:38)
[2018-01-12] MEDS ORDERED: 0.9 % Sodium Chloride 1,000 ML IVC SCH (11:15)
[2018-01-12] MEDS ORDERED: *HR* FentaNYL (PF) 100 MCG/2 ML VIAL ONE (11:47)
[2018-01-12] MEDS ORDERED: *HR* Midazolam HCl 5 MG/5 ML VIAL IVP ONE (11:47)
--- NOTE | 2018-01-12 12:13 | Anesthesia Evaluation PreOp ---
Date of Encounter: 01/12/18 Time of Encounter: 12:11 - Past History Planned Operation: Colonoscopy Cardiac History: Denies any Significant Hx Pulmonary History: Smoker (14 years) SOLE ASSESSOR History: Denies Any Significant HX Other Medical History: Other (Crohn's disease) Anesthesia History: No Prior Anesthetic Complications, Past Anesthesia Alcohol Use: none Drug use: none Medications and Allergies No Known Home Drugs 01/10/18 [History] 3 Allergy/AdvReac Type Severity Reaction Status Date / Time Sulfa (Sulfonamide Allergy Rash Verified 01/10/18 13:42 Antibiotics) - Meds/Allergy Pre-op Review Medications Reviewed: Yes Allergies Reviewed: Yes Beta Blockers on Current Med List: No Anesthesia Results - Labs 01/12/18 05:35 01/12/18 05:35 Anesthesia Exam Vital Signs/O2 Sat, Most Current Temp Pulse Resp BP Pulse Ox 97.7 F 92 16 115/88 95 01/12/18 11:02 01/12/18 11:02 01/12/18 11:02 01/12/18 11:02 01/12/18 11:02 Height: 5'8''/1.73 m Weight: 239 lbs/108.5 kg NPO (# of Hours): 8 Pain Scale: 6 (abdomen) Pain Scale Used: Numeric (1 - 10) - HEENT Pupil (Motor): EOMI Mallampati: III Teeth: Poor dentition Oral Opening: Greater than 3 - SOLE ASSESSOR LOC: Oriented SOLE ASSESSOR Motor: Normal RUE, Normal LUE, Normal RLE, Normal LLE, Normal Face SOLE ASSESSOR Sensory: Normal: RUE, LUE, RLE, LLE, Face - Cardiac Rhythm: Regular Murmur: None - Pulmonary Breath Sounds: bilateral Clear Respiratory Effort: Symmetrical Anesthesia Assess/Plan ASA Score: 2 Modified Anton Scale for Level of Consciousness: Cooperative, oriented, and tranquil Anesthetic Plan: MAC Monitoring Plan: Standard Monitors
[2018-01-12] MEDS ORDERED: *HR* Propofol 200 MG/20 ML VIAL IVP ONE ×3 (12:31→12:42)
[2018-01-12] MEDS ORDERED: Lidocaine -MPF 2% 2 ML VIAL ONE (12:32)
--- NOTE | 2018-01-12 17:26 | Internal Med Progress Note ---
Date of Encounter: 01/12/18 Time of Encounter: 13:45 - Assessment and plan (1) Crohns disease Current Visit: Yes Status: Acute Assessment and plan: Patient has history of Crohn's disease with noncompliance to medications and outpatient follow-up. Last colonoscopy was 5 years ago. GI has been consulted , patient underwent colonoscopy today-showed normal colon, pending biopsy results. Will resume diet and continue supportive care; Continue IV steroids, supportive care with when necessary antiemetics. Pain control with when necessary IV fentanyl and oral Percocet. Stable leukocytosis, likely related to steroid use. Hypokalemia-due to poor oral intake. Supplement with oral potassium chloride. Qualifiers: Gastrointestinal tract location: small intestine Digestive disease complication type: unspecified complication Qualified Code(s): K50.019 - Crohn 's disease of small intestine with unspecified complications (2) Partial small bowel obstruction Current Visit: Yes Status: Ruled-out (3) Tobacco abuse Current Visit: Yes Status: Chronic Assessment and plan: Declines nicotine transdermal patch at this time. - Subjective Interval history: Feels much better today. Improving abdominal pain. No vomiting. Return from colonoscopy. - Constitutional Vitals: Temp Pulse Resp BP Pulse Ox 97.7 F 60 16 129/91 97 01/12/18 15:13 01/12/18 15:13 01/12/18 15:13 01/12/18 15:13 01/12/18 15:13 General appearance: Present: A&O X 3, answers questions appropriately - Respiratory Respiratory exam: Present: CTAB. Absent: accessory muscle use, rales, rhonchi, wheezes - Cardiovascular Cardiovascular exam: Present: RRR, +S1, +S2. Absent: diastolic murmur, gallop, rubs, systolic murmur - GI/Abdominal GI/Abdominal exam: Present: normal bowel sounds, soft, no peritoneal signs. Absent: distended, tenderness Internal Medicine: Result - Labs CBC & Chem 7: 01/12/18 05:35 01/12/18 05:35 Labs: Short CBC 01/12/18 Range/Units 05:35 WBC 15.5 H (4.3-11.1) K/mcL Hgb 17.1 H (12.9-16.9) g/dL Hct 51.1 H (37.5-50.1) % Plt Count 245 (140-400) K/mcL Neutrophils # 10.8 H (1.6-8.9) K/mcL BMP 01/12/18 05:35 Sodium 139 Potassium 3.2 L Chloride 107 Carbon Dioxide 24 BUN 10 Creatinine 0.74 Glucose 144 H Calcium 8.7 - ABG Interpretation ABG results: PT/INR, D-dimer PT 12.0 Seconds (9.4-12.1) 01/10/18 01:17 - VTE Documentation of Mechanical Device: Graduated compression elastic hosiery Consult Discharge Plan - Plan Referrals: NONE,PCP [Primary Care Provider] -
[2018-01-12] MEDS: Ondansetron 4 MG/2 ML VIAL IVP PRN (18:04)
[2018-01-12] MEDS ORDERED: Melatonin 3 MG TABLET PO PRN (23:10)
[2018-01-13] MEDS: *HR* FentaNYL (PF) 100 MCG/2 ML VIAL IVP PRN ×2 (05:21→11:56)
[2018-01-13] MEDS: Ondansetron 4 MG/2 ML VIAL IVP PRN (05:21)
[2018-01-13] MEDS: OXYCODONE Oral CONC 10 MG/0.5 ML ORAL.SYG SL PRN (09:08)
[2018-01-13] MEDS: methylPREDNISolone 125 MG/2 ML VIAL IVP SCH (09:08)
[2018-01-13] MEDS: *HR* Promethazine 25 MG/ML VIAL IVP PRN (09:08)
[2018-01-13 09:23] LABS: Basophils # 0.1 K/mcL (0.0-0.2); Basophils % 0.4 %; Eosinophils # 0.1 K/mcL (0.0-0.6); Eosinophils % 0.6 %; Hematocrit 52.1 % (37.5-50.1); Hemoglobin 17.2 g/dL (12.9-16.9); Immature Granulocytes % 1.7 % (0-4); Lymphocytes # 2.7 K/mcL (0.6-4.6); Lymphocytes % 16.6 %; Mean Corpuscular Hemoglobin 28.8 pg (28.0-33.3); Mean Corpuscular Volume 87.3 fL (83.0-100.0); Mean Platelet Volume 10.2 fL (9.4-12.4); Monocytes # 1.4 K/mcL (0.0-1.3); Monocytes % 8.9 %; Neutrophils # 11.6 K/mcL (1.6-8.9); Platelet Count 251 K/mcL (140-400); Red Blood Count 5.97 M/mcL (4.19-5.50); Segmented Neutrophils % 71.8 %
[2018-01-13 09:39] LABS: BUN/Creatinine Ratio 12 (6-26); Blood Urea Nitrogen 10 mg/dL (6-20); Calcium 8.9 mg/dL (8.6-10.3); Carbon Dioxide 25 mEq/L (23-29); Chloride 108 mEq/L (98-107); Glucose 172 mg/dL (70-105); Magnesium 2.3 mg/dL (1.6-2.6); Osmolality,Calculated 295 (280-300); Potassium 3.6 mEq/L (3.5-5.1); Sodium 141 mEq/L (136-145); eGFR For African Americans > 60 (> 60); eGFR For Non-African Americans > 60 (> 60)
[2018-01-13 10:49] VITALS: BP 124/81
--- NOTE | 2018-01-13 10:51 | Gastroenterology Progress Note ---
<ReynaBruce dunlap Rigoberto - Last Filed: 01/13/18 10:49> Date of Encounter: 01/13/18 Time of Encounter: 10:05 - Assessment and plan (1) Crohns disease Status: Acute Assessment and plan: Diagnosed in 2004. Colonoscopy yesterday normal, awaiting pathology results. Plan for capsule endoscopy as outpatient. Abdominal pain improved. Continue Solu -Medrol 60 mg IV and pain control. Transition to Prednisone taper at discharge. Qualifiers: Gastrointestinal tract location: small intestine Digestive disease complication type: unspecified complication Qualified Code(s): K50.019 - Crohn 's disease of small intestine with unspecified complications - Time Spent With Patient Total time spent is greater than 50% in coordination of care (as documented) at patient's floor/unit and/or counseling patient: - Subjective Interval history: Pt resting in bed and reports he is feeling much better. Abdominal pain continues to improve. Colonoscopy completed 01/12. Pt states he ate some of his breakfast without problem. - Constitutional Vitals: Temp Pulse Resp BP Pulse Ox 99.6 F 86 16 124/81 96 01/13/18 10:48 01/13/18 10:48 01/13/18 10:48 01/13/18 10:48 01/13/18 10:48 General appearance: Present: cooperative, A&O X 3, no acute distress, answers questions appropriately - Head Head exam: Present: atraumatic, normocephalic - Eye Eye exam: Present: normal appearance, sclera anicteric - ENT ENT exam: Present: mucous membranes moist - Neck Neck exam general surgery: Present: normal inspection, trachea midline - Respiratory Respiratory exam: Present: CTAB. Absent: rales, rhonchi - Cardiovascular Cardiovascular exam: Present: RRR, +S1, +S2 - GI/Abdominal GI/Abdominal exam: Present: soft, tenderness (mild lower abdominal tenderness with palpation), no peritoneal signs. Absent: distended, firm, guarding - Rectal Rectal exam: Present: deferred - Extremities Exam Extremities exam: Present: warm - Neurological Exam Neurological exam: Present: no focal deficits - Psychiatric Psychiatric exam: Present: normal affect, normal mood - Skin Skin exam: Present: dry, intact, normal color, warm Results - Labs CBC & Chem 7: 01/13/18 09:02 01/13/18 09:02 Labs: Last Result ESR 26 mm/hr (0-10) H 01/09/18 20:39 Calcium 8.9 mg/dL (8.6-10.3) 01/13/18 09:02 Triglycerides 147 mg/dL (< 150) 01/10/18 01:17 Entire Visit Hgb 17.2 g/dL (12.9-16.9) H 01/13/18 09:02 Hct 52.1 % (37.5-50.1) H 01/13/18 09:02 PT 12.0 Seconds (9.4-12.1) 01/10/18 01:17 Total Bilirubin 0.5 mg/dL (0.3-1.0) 01/10/18 01:17 AST 15 Units/L (13-39) 01/10/18 01:17 ALT 20 Units/L (7-52) 01/10/18 01:17 Amylase 24 Units/L (29-103) L 01/09/18 20:39 Lipase 26 Units/L (11-82) 01/09/18 20:39 - ABG ABG results: PT/INR, D-dimer PT 12.0 Seconds (9.4-12.1) 01/10/18 01:17 - VTE Documentation of Mechanical Device: Graduated compression elastic hosiery Consult Discharge Plan - Plan Instructions: Crohn Disease (GEN) Additional Instructions: F/up with PCP in 1-2 weeks F/u with GI in 2 weeks Referrals: NONE,PCP [Primary Care Provider] - (Patient in the process of moving and will find his own physician at this time. Thank you) Jonathan Lebron MD [Partnered Physician] - (Office will call with date and time of appt. Thank you) Prescriptions: OxyCODONE/APAP 5/325 [Percocet 5/325 MG] 1 each PO Q6HR PRN 5 Days #10 tablet PRN Reason: Pain predniSONE [PredniSONE] 40 mg PO DAILY 21 Days tablet <Jonathan Lebron - Last Filed: 01/14/18 08:45> Date of Encounter: 01/13/18 Time of Encounter: 14:00 - Time Spent With Patient Total time spent is greater than 50% in coordination of care (as documented) at patient's floor/unit and/or counseling patient: - Constitutional Vitals: Temp Pulse Resp BP Pulse Ox 99.6 F 86 16 124/81 96 01/13/18 10:48 01/13/18 10:48 01/13/18 10:48 01/13/18 10:48 01/13/18 10:48 Results - Labs CBC & Chem 7: 01/13/18 09:02 01/13/18 09:02 Labs: Last Result ESR 26 mm/hr (0-10) H 01/09/18 20:39 Calcium 8.9 mg/dL (8.6-10.3) 01/13/18 09:02 Triglycerides 147 mg/dL (< 150) 01/10/18 01:17 Entire Visit Hgb 17.2 g/dL (12.9-16.9) H 01/13/18 09:02 Hct 52.1 % (37.5-50.1) H 01/13/18 09:02 PT 12.0 Seconds (9.4-12.1) 01/10/18 01:17 Total Bilirubin 0.5 mg/dL (0.3-1.0) 01/10/18 01:17 AST 15 Units/L (13-39) 01/10/18 01:17 ALT 20 Units/L (7-52) 01/10/18 01:17 Amylase 24 Units/L (29-103) L 01/09/18 20:39 Lipase 26 Units/L (11-82) 01/09/18 20:39 - ABG ABG results: PT/INR, D-dimer PT 12.0 Seconds (9.4-12.1) 01/10/18 01:17 - Attending Attestation I examined this patient and my medical decision-making was reviewed with the THERMIT WELDING MACHINE OPERATOR. I agree with the documented findings, disposition and treatment plan as described except to the extent set forth below. Pt with Hx of Crohn disease. Colonoscopy unremarkable capsule endoscopy as an outpatient
--- NOTE | 2018-01-13 13:36 | Discharge Summary ---
- NOTES TO OUTPATIENT PROVIDER Notes to Outpatient Provider: F/up biopsy from colonoscopy, GI f/up for possible Crohns disease Orders not resulted at time of discharge: Pending orders 01/09/18 23:33 Culture,Blood [BC] Routine Culture,Blood,Additional [BC] Routine 01/12/18 12:51 Surgical Pathology [PTH] Routine 01/13/18 09:02 Saccharomyces cerevisiae Abs Routine Pathology 01/12/18 12:51 Surgical Pathology [PTH] Routine Comment: Department: Surgical Pathology Specimen: Has been collected Specimen placed in fixative?: Yes Tissue Removal Time:: :51 Tissue Fixative Time:: 12:51 DATE ANAT:: 01/12/18 Collected At:: 145.0 PRE-OP DIAGNOSIS:: History crohns POST-OP DIAGNOSIS:: hemorrhoids SPECIMEN & SITE: 1: TI bx SPECIMEN & SITE: 2: right randome colon bx SPECIMEN & SITE: 3: left colon random bx Date of Encounter: 01/13/18 Time of Encounter: 11:35 - Discharge Diagnosis (1) Crohns disease Priority: Primary Status: Acute Qualifiers: Gastrointestinal tract location: small intestine Digestive disease complication type: unspecified complication Qualified Code(s): K50.019 - Crohn 's disease of small intestine with unspecified complications (2) Partial small bowel obstruction Priority: Primary Status: Ruled-out (3) Tobacco abuse Priority: Secondary Status: Chronic Hospital course: Mr. Castro is a 37 year old male with history of Crohn's disease with medical noncompliance and lost to follow-up, who was admitted with abdominal pain and diarrhea. CT abdomen/pelvis showed borderline prominent loops of proximal small bowel, suggestive of low-grade partial obstruction. He was started on supportive medical management with bowel rest, IV hydration, pain control and supportive care. Patient is thought to be having a flareup of Crohn's disease due to the intensity of pain and reported history of diarrhea. He was evaluated by surgery, less likely bowel obstruction, no intervention recommended. He was evaluated by gastroenterology, started on IV steroids, underwent colonoscopy which showed no gross abnormality with biopsies pending. His symptoms have significantly improved at this time, tolerates oral diet and is medically stable for discharge on tapering oral steroids and limited prescription for pain medications. [facility] report showed that patient has received multiple narcotic pain medications from different providers in the last 2 years. He is encouraged to follow with GI and he verbalized understanding. Case discussed with gastroenterology, agreed with discharge plan. Discharge discussed with: patient Time spent discussing smoking cessation with patient: 3 to 10 minutes - Time Spent with Patient Total time spent providing and/or coordinating discharge services: Greater than 30 minutes (40 min) - Discharge Medications Prescriptions: OxyCODONE/APAP 5/325 [Percocet 5/325 MG] 1 each PO Q6HR PRN 5 Days #10 tablet PRN Reason: Pain predniSONE [PredniSONE] 40 mg PO DAILY 21 Days tablet Home Medications: OxyCODONE/APAP 5/325 [Percocet 5/325 MG] 1 each PO Q6HR PRN 5 Days #10 tablet [Rx] predniSONE [PredniSONE] 40 mg PO DAILY 21 Days tablet 01/13/18 [Rx] Allergies/Adverse Reactions: 3 Allergy/AdvReac Type Severity Reaction Status Date / Time Sulfa (Sulfonamide Allergy Rash Verified 01/10/18 13:42 Antibiotics) Date of admission: 01/09/18 23:22 Primary care physician: PCP NONE Consults: 01/10/18 11:46 Consult to Gastroenterology [CONS] Routine Consulting Provider: [facility] [place] Reason for Consult: crohn's disease SOB, pain Time Notified: 11:47 Call Completed: Yes Discharging clinician: Chloé Del Rio Anticipated date of discharge: 01/13/18 - Constitutional Vitals: Temp Pulse Resp BP Pulse Ox 99.6 F 86 16 124/81 96 01/13/18 10:48 01/13/18 10:48 01/13/18 10:48 01/13/18 10:48 01/13/18 10:48 General appearance: Present: A&O X 3, answers questions appropriately - Cardiovascular Cardiovascular exam: Present: RRR, +S1, +S2. Absent: diastolic murmur, gallop, rubs, systolic murmur - Patient Status Disposition: Home, Self-Care Condition: Good Functional capacity at discharge: independent ambulation Overall status at discharge: patient is progressing back to baseline - Discharge Instructions Instructions: Crohn Disease (GEN) Follow Up With: NONE,PCP [Primary Care Provider] - (Patient in the process of moving and will find his own physician at this time. Thank you) Jonathan Lebron MD [Partnered Physician] - (Office will call with date and time of appt. Thank you) Additional Instructions: F/up with PCP in 1-2 weeks F/u with GI in 2 weeks - Diet and Activity Activity: resume usual activities as tolerated Diet: advance to your usual diet - VTE Documentation of Mechanical Device: Graduated compression elastic hosiery
== END 2018-01-13 14:10 | disposition home or self-care (01) | DRG 387 ==
LOC: EMEROO 19:49 → 3ANU 19:49 → SUATTDRO 23:22
PROVIDERS: ADMIT Internal Medicine; ATTEND Internal Medicine